=== PATIENT | female | born 1995 | race African-American/Black ===

== ENCOUNTER 2019-05-04 22:54 | Emergency (ER) | payer SELFPAY ==
[~2019-05-04] VITALS: Ht 167.6 cm; Wt 71.7 kg
[2019-05-04 23:00] VITALS: BP 139/97
--- NOTE | 2019-05-04 23:29 | PHYS DOC ---
Past Medical History Past Medical History: No Pertinent History Past Surgical History: No Surgical History Alcohol Use: None Drug Use: None Adult General Chief Complaint Chief Complaint: EARACHE/EAR PAIN HPI HPI Patient is a 24-year-old female who presents with complaint of right ear pain since . Patient states that pain is gotten to the point now where she just needed to be seen. She rates pain as moderate. She denies any fever. She denies any chest pain or shortness of breath. She also denies any cough.[] Review of Systems Review of Systems Constitutional: Denies fever or chills [] HENT: Complains of right ear pain[] Respiratory: Denies cough or shortness of breath [] Cardiovascular: No additional information not addressed in HPI [] Neurologic: Denies headache, focal weakness or sensory changes [] Allergies Allergies Allergies Coded Allergies Type Severity Reaction Last Updated Verified No Known Drug Allergies 05/04/19 No Physical Exam Physical Exam Constitutional: Well developed, well nourished, no acute distress, non-toxic appearance. [] HENT: Normocephalic, atraumatic, left TM is normal-appearing. Right TM demonstrates fluid level but no findings for infection. [] Neck: Normal range of motion, no tenderness, supple, no stridor. [] Cardiovascular: Regular rate and rhythm[] Lungs & Thorax: Bilateral breath sounds clear to auscultation [] Current Patient Data Vital Signs Vital Signs Date Time Temp Pulse Resp B/P (MAP) Pulse Ox O2 Delivery O2 Flow Rate FiO2 05/04/19 23:00 98.1 80 18 139/97 (111) 99 Room Air 98.1 EKG EKG [] Radiology/Procedures Radiology/Procedures [] Course & Med Decision Making Course & Med Decision Making Pertinent Labs and Imaging studies reviewed. (See chart for details) [] Dragon Disclaimer Dragon Disclaimer This electronic medical record was generated, in whole or in part, using a voice recognition dictation system. Departure Departure Impression: Primary Impression: Serous otitis media Disposition: AGAINST MEDICAL ADVICE (MSE was performed and patient elected to not receive treatment) Condition: STABLE Referrals: NO PCP (PCP) Problem Qualifiers Primary Impression: Serous otitis media Chronicity: unspecified Laterality: right Qualified Codes: H65.91 - Unspecified nonsuppurative otitis media, right ear ADRIANNE GRAF Jr. DO May 04, 2019 23:29
== END 2019-05-04 23:16 | disposition home or self-care (01) ==
LOC: ER 22:54
DX: H65.91 Unspecified nonsuppurative otitis media, right ear (principal)
CPT/HCPCS: 99281

== ENCOUNTER 2020-01-14 17:35 | Emergency (ER) | payer MEDICAID ==
[~2020-01-14] VITALS: Ht 167.6 cm; Wt 70.0 kg
[2020-01-14 18:16] VITALS: BP 123/81
[2020-01-14] MEDS ORDERED: IBUP-1007 PO (18:53)
[2020-01-14] MEDS ORDERED: AMOX500T PO (18:53)
--- NOTE | 2020-01-14 18:53 | PHYS DOC ---
Past Medical History Past Medical History: No Pertinent History (HARRIET SAAVEDRA APRN) Past Surgical History: No Surgical History (HARRIET SAAVEDRA APRN) Smoking Status: Current Every Day Smoker Alcohol Use: None Drug Use: None (HARRIET SAAVEDRA APRN) General Adult EDM: Chief Complaint: EARACHE/EAR PAIN HPI: HPI: Patient is a 24 year old female who presents to the ED today complaining of 10 out of 10 left upper gum dental pain and left ear pain that began this morning around 1 AM. Patient reports her left upper wisdom tooth broke yesterday and that could be sending the pain to the left ear. Denies any fever, denies any coughing or congestion. She states she has an appointment with a dentist next week (HARRIET SAAVEDRA APRN) Review of Systems: Review of Systems: Constitutional: Denies fever or chills. [] Eyes: Denies change in visual acuity. [] HENT: Reports left upper gum dental pain and left ear pain, denies nasal congestion or sore throat. [] Respiratory: Denies cough or shortness of breath. [] Cardiovascular: Denies chest pain or edema. [] GI: Denies abdominal pain, nausea, vomiting, bloody stools or diarrhea. [] : Denies dysuria. [] Musculoskeletal: Denies back pain or joint pain. [] Integument: Denies rash. [] Neurologic: Denies headache, focal weakness or sensory changes. [] Psychiatric: Denies depression or anxiety. [] (HARRIET SAAVEDRA APRN) Heart Score: Risk Factors: Risk Factors: DM, Current or recent (<one month) smoker, HTN, HLP, family history of CAD, obesity. Risk Scores: Score 0 - 3: 2.5% MACE over next 6 weeks - Discharge Home Score 4 - 6: 20.3% MACE over next 6 weeks - Admit for Clinical Observation Score 7 - 10: 72.7% MACE over next 6 weeks - Early Invasive Strategies (HARRIET SAAVEDRA APRN) Allergies: Allergies: Allergies Coded Allergies Type Severity Reaction Last Updated Verified No Known Drug Allergies 05/04/19 No (HARRIET SAAVEDRA APRN) Physical Exam: PE: Constitutional: Well developed, well nourished, no acute distress, non-toxic appearance. [] HENT: Normocephalic, atraumatic, bilateral external ears normal, oropharynx moist, no oral exudates, nose normal. [] Tooth #16 and 15 are broken and decayed, no gum erythema. Bilateral TM are normal. Eyes: PERRLA, EOMI, conjunctiva normal, no discharge. [] Neck: Normal range of motion, no tenderness, supple, no stridor. [] Cardiovascular:Heart rate regular rhythm, no murmur [] Lungs & Thorax: Bilateral breath sounds clear to auscultation [] Abdomen: Bowel sounds normal, soft, no tenderness, no masses, no pulsatile masses. [] Skin: Warm, dry, no erythema, no rash. [] Back: No tenderness, no CVA tenderness. [] Extremities: No tenderness, no cyanosis, no clubbing, ROM intact, no edema. [] Neurologic: Alert and oriented X 3, normal motor function, normal sensory function, no focal deficits noted. [] Psychologic: Affect normal, judgement normal, mood normal. [] (HARRIET SAAVEDRA APRN) Current Patient Data: Vital Signs: Vital Signs Date Time Temp Pulse Resp B/P (MAP) Pulse Ox O2 Delivery O2 Flow Rate FiO2 01/14/20 18:16 98.7 78 20 123/81 (95) 98 Room Air 98.7 (HARRIET SAAVEDRA APRN) EKG: EKG: [] (HARRIET SAAVEDRA APRN) Radiology/Procedures: Radiology/Procedures: [] (HARRIET SAAVEDRA APRN) Course & Med Decision Making: Course & Med Decision Making Pertinent Labs and Imaging studies reviewed. (See chart for details) This is a 24-year-old female patient presenting to the ED today with left upper gum dental pain as well as ear pain that began yesterday after her left wisdom tooth broke while eating. She was put on antibiotics specifically amoxicillin. She was given prescription for ibuprofen. And instructed to follow-up with her dentist next week. 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 I was available for consu ltation as needed during the patient's visit in the emergency department. I agree with the clinical impression, plans and disposition. (ANKUR VERMA MD) José Miguel Disclaimer: José Miguel Disclaimer: This electronic medical record was generated, in whole or in part, using a voice recognition dictation system. (HARRIET SAAVEDRA APRN) Departure Departure Impression: Primary Impression: Otalgia, left ear Additional Impression: Dental implant pain Qualified Codes: T85.848A - Pain due to other internal prosthetic devices, implants and grafts, initial encounter Disposition: HOME, SELF-CARE Condition: STABLE Referrals: NO PCP (PCP) follow up in 1-2 weeks with your dentist. Patient Instructions: Dental Pain, Otalgia-Brief Additional Instructions: You were evaluated in the emergency room your dental pain appears to be the cause of your ear pain. Take the prescribed antibiotic as ordered until completed. Take ibuprofen or Tylenol as needed for pain. Follow-up with your dentist next week. Scripts Ibuprofen (IBUPROFEN) 600 Mg Tablet 600 MG PO PRN Q6HRS PRN for INFLAMMATION, #20 TAB Prov: HARRIET SAAVEDRA APRN 01/14/20 Amoxicillin (AMOXICILLIN) 500 Mg Tablet 1 TAB PO BID, #20 TAB Prov: HARRIET SAAVEDRA APRN 01/14/20 Justicifation of Admission Dx: Justifications for Admission: Justification of Admission Dx: N/A (HARRIET SAAVEDRA APRN) HARRIET SAAVEDRA APRN Jan 14, 2020 18:53 ANKUR VERMA MD Jan 14, 2020 21:49
== END 2020-01-14 19:00 | disposition home or self-care (01) ==
LOC: ER 17:35
DX: T85.848A Pain due to other internal prosthetic devices, implants and grafts, initial encounter (principal); K08.89 Other specified disorders of teeth and supporting structures; H92.02 Otalgia, left ear; F17.200 Nicotine dependence, unspecified, uncomplicated
CPT/HCPCS: 99283

== ENCOUNTER 2020-08-16 20:09 | Emergency (ER) | payer MEDICAID ==
[~2020-08-16] VITALS: Ht 167.6 cm; Wt 60.0 kg
[~2020-08-16 20:09] MED LIST: AMOX500T PO; IBUP-1007 PO
[2020-08-16 20:48] VITALS: BP 118/75
[2020-08-16] MEDS ORDERED: AMOX500C PO (21:45)
[2020-08-16] MEDS ORDERED: IBUP-1060 PO (21:45)
--- NOTE | 2020-08-16 21:46 | PHYS DOC ---
Past Medical History Past Medical History: No Pertinent History Past Surgical History: No Surgical History Smoking Status: Current Every Day Smoker Alcohol Use: None Drug Use: None General Adult EDM: Chief Complaint: DENTAL PROBLEM HPI: HPI: Patient is a 25 year old [f__sex] who presents with [] Review of Systems: Review of Systems: Fourteen body systems of review of systems have been reviewed. See HPI for pertinent positives and negative responses, other colin all other systems are negative, non-pertinent or non-contributory Heart Score: Risk Factors: Risk Factors: DM, Current or recent (<one month) smoker, HTN, HLP, family history of CAD, obesity. Risk Scores: Score 0 - 3: 2.5% MACE over next 6 weeks - Discharge Home Score 4 - 6: 20.3% MACE over next 6 weeks - Admit for Clinical Observation Score 7 - 10: 72.7% MACE over next 6 weeks - Early Invasive Strategies Allergies: Allergies: Allergies Coded Allergies Type Severity Reaction Last Updated Verified No Known Drug Allergies 05/04/19 No Physical Exam: PE: Constitutional: Well developed, well nourished, no acute distress, non-toxic appearance. HENT: Normocephalic, atraumatic, bilateral external ears normal, oropharynx moist, no oral exudates, nose normal. Eyes: PERRLA, EOMI, conjunctiva normal, no discharge. Neck: Normal range of motion, no tenderness, supple, no stridor. Cardiovascular: Heart rate regular per monitor Lungs & Thorax: No respiratory distress or accessory muscle use, bilateral chest rise Abdomen: Abdomen soft, non-tender, bowel sounds present in all quadrants, no guarding or rebound, nonacute abdomen. Skin: Warm, dry, no erythema, no rash. Back: No tenderness, no CVA tenderness. Extremities: No tenderness, no cyanosis, no clubbing, ROM intact, no edema. Neurologic: Alert and oriented X 3, grossly normal motor & sensory function, no focal deficits noted. Psychologic: Affect normal, judgement normal, mood normal. Current Patient Data: Vital Signs: Vital Signs Date Time Temp Pulse Resp B/P (MAP) Pulse Ox O2 Delivery O2 Flow Rate FiO2 08/16/20 20:48 98.2 88 20 118/75 (89) 98 Room Air 98.2 EKG: EKG: [] Radiology/Procedures: Radiology/Procedures: [] Course & Med Decision Making: Course & Med Decision Making Pertinent Labs and Imaging studies reviewed. (See chart for details) [] Dragon Disclaimer: Dragon Disclaimer: This electronic medical record was generated, in whole or in part, using a voice recognition dictation system. Departure Departure Impression: Primary Impression: Infected dental caries Disposition: DC HOME SELF CARE/HOMELESS Condition: STABLE Referrals: NO PCP (PCP) Patient Instructions: Dental Caries Additional Instructions: You were seen for dental pain. There is concern for active infection at this time and so you were prescribed amoxicillin. Take Ibuprofen (600-800mg) and Tylenol (500-650mg) alternating every 4-6 hours to help with inflammation and pain while you contact a dentist for further care. You should return to the ED if you develop worsening pain, fever > 101, swelling, redness, or any other new or concerning symptoms. Unfortunately, your pain is not likely to improve without seeing a dentist for further evaluation and treatment of your poor dentition and dental caries. Scripts Amoxicillin (AMOXICILLIN) 500 Mg Capsule 1 CAP PO TID for 5 Days, #15 CAP Prov: MORIAH CORRAL DO 08/16/20 Ibuprofen (IBUPROFEN) 800 Mg Tablet 800 MG PO PRN TID PRN for PAIN, #20 TAB take with food or milk to avoid upsetting stomach Prov: MORIAH CORRAL DO 08/16/20 MORIAH CORRAL DO Aug 16, 2020 21:46
[2020-08-16] MEDS ORDERED: AMOXICILLIN 250 MG CAPSULE. ONE (21:49)
[2020-08-16] MEDS ORDERED: IBUPROFEN 400 MG TABLET. PO ONE ×2 (21:49→22:30)
[2020-08-16] MEDS ORDERED: AMOXICILLIN 250 MG CAPSULE. PO ONE (22:30)
== END 2020-08-16 21:53 | disposition home or self-care (01) ==
LOC: ER 20:09
DX: K02.9 Dental caries, unspecified (principal); K08.89 Other specified disorders of teeth and supporting structures; F17.200 Nicotine dependence, unspecified, uncomplicated
CPT/HCPCS: 99283